=== PATIENT | female | born 1955 | race Caucasian/White ===

== ENCOUNTER → 2018-08-05 | Outpatient (CLI) | payer OTHER ==
[~2018-08-05] MED LIST: ALPR1 PO; ASPI81EC PO; CHOL10002 PO; CITRACAL; GLIP5 PO; INSULANI SUBQ; LETR2.5 PO; LEVSOD125 PO; LIRA0.6P SQ; LISHYD2025 PO
== END | disposition home or self-care (01) ==
LOC: PLD 12:14 → LAB SHORT 12:14
DX: D04.61 Carcinoma in situ of skin of right upper limb, including shoulder (principal); L90.5 Scar conditions and fibrosis of skin; L57.0 Actinic keratosis
CPT/HCPCS: 88305

== ENCOUNTER → 2018-11-24 | Outpatient (CLI) | payer OTHER | END | disposition home or self-care (01) | LOC: LAB SHORT 11-21 06:35 → PLD 15:44 → LAB SHORT 15:44 | DX: D48.5 Neoplasm of uncertain behavior of skin (principal) | CPT/HCPCS: 88305 ==

== ENCOUNTER → 2021-04-08 | Outpatient (CLI) | payer OTHER | LOC: LAB SHORT 11:03 → PLD 11:03 | DX: D48.5 Neoplasm of uncertain behavior of skin (principal); D23.5 Other benign neoplasm of skin of trunk | CPT/HCPCS: 88305 ==

== ENCOUNTER 2024-10-20 08:45 | Day surgery (SDC) | payer MEDICARE, BC ==
[2024-10-20] VITALS (22 sets, daily range): BP systolic 160–218; BP diastolic 61–91
[~2024-10-20] VITALS: Ht 165.1 cm; Wt 72.8 kg
[~2024-10-20 08:45] MED LIST changes: +ACAR50 PO; +AMLO5 PO; +ATOR40TA PO; +FARXIGA10 MG PO; +INSULANI SC; +LOSARTAN POTAS100 M1 PO; +METTREX2.5 PO; +TROSPIUM CHLORI60 MG PO
[2024-10-20] MEDS ORDERED: CeFAZolin Sodium 2,000 MG in NS 100 ML IV SCH (09:15)
[2024-10-20] MEDS ORDERED: CeFAZolin Sodium 2,000 MG VIAL ONE (09:24)
[2024-10-20] MEDS ORDERED: Bupivacaine 0.5% HCl 5 MG/ML 30MLVIAL ONE ×2 (09:34→09:47)
[2024-10-20] MEDS ORDERED: Midazolam HCl 1MG / ML 2ML Vial ONE (09:45)
[2024-10-20] MEDS ORDERED: FentaNYL Citrate 50 MCG/ML 2 ML Injection ONE ×2 (09:45→12:17)
[2024-10-20] MEDS ORDERED: EpiNEPhrine 1 MG/1 ML 1ML Vial ONE (09:47)
--- NOTE | 2024-10-20 10:00 | NUR ---
History, Chart, Medications and Allergies reviewed before start of procedure.PRE OP TEACHING DONE, LEFT AXILLARY BLOCK CONSENTED BY MO ANESTHESIA TIME OUT AT 0950 2 LITERS OXYGEN PLACED MO MEDICATED, START TIME FOR BLOCK 0953 END TIME 0955
[2024-10-20] MEDS ORDERED: Ondansetron HCl 2 MG / ML 2ML Vial ONE (10:08)
[2024-10-20] MEDS ORDERED: Dexamethasone Sod Phos 10 MG/ML 1ML VIAL ONE (10:08)
[2024-10-20] MEDS ORDERED: Ketorolac Tromethamine 30mg Vial ONE (10:09)
[2024-10-20] MEDS ORDERED: Sugammadex Sodium 200 MG/2ML SDV (100 MG/ML) ONE (11:32)
[2024-10-20] MEDS ORDERED: FentaNYL Citrate 50 MCG/ML 2 ML Injection IV PRN ×2 (11:35)
[2024-10-20] MEDS ORDERED: Labetalol HCL 5 MG/ML 4ML Injection (Single Dose) IV PRN (11:35)
[2024-10-20] MEDS ORDERED: Ondansetron HCl 2 MG / ML 2ML Vial IV PRN (11:35)
[2024-10-20] MEDS ORDERED: HYDROmorphone HCl/Pf 1MG SYR ONE (11:36)
[2024-10-20] MEDS ORDERED: HYDROmorphone HCl/Pf 1MG SYR IV PRN ×2 (11:40)
[2024-10-20] MEDS ORDERED: Labetalol HCL 5 MG/ML 4ML Injection (Single Dose) ONE ×2 (12:00→13:46)
[2024-10-20] MEDS ORDERED: HydrALAZINE HCl 20 MG / ML 1ML Vial IV ONE (14:10)
--- NOTE | 2024-10-20 16:32 | NUR ---
Discharge instructions reviewed with patient. Patient verbalizes understanding. Copy given to patient to take home. Patient up to Ambulate independently. Gait steady. SLING AND ICE PACKS PROVIDED AND EXPLAINED USE TO PATIENT AND SPOUSE. Discharged via wheelchair to private car for ride home.
--- NOTE | 2024-10-20 16:40 | NUR ---
CALL TO SPOUSE R/T IV NOT REMOVED AT DISCHARGE. REQUESTED POATIENT TO RETURN TO FACILITY TO HAVE REMOVED. PATIENT REFUSES TO RETURN TO FACILITY STATES SPENT ALL DAY HERE AND SHE CAN TAKE OUT HERSELF. SPOUSE STATES OLD emt, SEARCH AND RESCUE, REPORTS KNOWLEDGE. INSTRUCTED SPOUSE ON REMOVAL AND TO CALL BACK WHEN SUCESSFULLY COMPLETED.
--- NOTE | 2024-10-20 16:54 | NUR ---
SPOUSE CALLED UNIT BACK, REPORTS SUCESSFUL REMOVAL OF IV CATHETER. NO CONCERNS.
== END 2024-10-20 23:00 | disposition home or self-care (01) ==
LOC: ORSCMMR 08:45 → ORD 08:45 → ORSCMMR 08:47 → ORD 08:47 → ORSCMMR 23:00 → ORD 23:00
PROVIDERS: Orthopaedic Surgery
PROC: 0PSJ04Z Reposition Left Radius with Internal Fixation Device, Open Approach (ICD-10-PCS; principal; 2024-10-20 10:00)
DX: S52.572A Other intraarticular fracture of lower end of left radius, initial encounter for closed fracture (principal); I10 Essential (primary) hypertension; E11.9 Type 2 diabetes mellitus without complications; E03.9 Hypothyroidism, unspecified; K21.9 Gastro-esophageal reflux disease without esophagitis; G47.33 Obstructive sleep apnea (adult) (pediatric); Z79.899 Other long term (current) drug therapy; Z79.4 Long term (current) use of insulin
CPT/HCPCS: 82947; A9270; C1713; C1889; J0165; J0360; J0690; J1100; J1171; J1885; J2250; J2405; J2704; J3010; J7120

== ENCOUNTER 2024-10-24 17:58 | Emergency (ER) | payer MEDICARE, BC ==
[~2024-10-24] VITALS: Ht 165.1 cm; Wt 72.6 kg
[2024-10-24 18:13] VITALS: BP 234/77
== END 2024-10-24 19:19 | disposition home or self-care (01) ==
LOC: ER 17:58
DX: I10 Essential (primary) hypertension (principal); E11.9 Type 2 diabetes mellitus without complications; Z79.899 Other long term (current) drug therapy; Z79.2 Long term (current) use of antibiotics; Z88.1 Allergy status to other antibiotic agents
CPT/HCPCS: 99283